=== PATIENT | female | born 1950 | race Caucasian/White ===

== ENCOUNTER 2021-08-16 09:05 | Outpatient (CLI) | payer MEDICARE, MEDICAID | END 2021-08-16 09:06 | disposition home or self-care (01) | LOC: CSHLAB 09:05 | PROVIDERS: ATTEND Orthopaedic Surgery | DX: Z01.812 Encounter for preprocedural laboratory examination (principal); Z20.822 Contact with and (suspected) exposure to COVID-19; M16.12 Unilateral primary osteoarthritis, left hip | CPT/HCPCS: 87081; U0003; U0005 ==

== ENCOUNTER 2021-08-19 10:25 | Inpatient (IN) | payer MEDICARE, MEDICAID ==
[2021-08-16 11:27] VITALS: BMI 29.4
[~2021-08-19 10:25] MED LIST: Bupivacaine 0.25% HCL 30 ML VIAL ONE; EPINEPHrine 1 MG/ML AMP ONE; Neomycin-Polymyxin 1 ML AMP ONE
[2021-08-19] MEDS ORDERED: Lidocaine 1% MPF 2 ML VIAL ONE (10:38)
[2021-08-19] MEDS ORDERED: Dexamethasone 4 mg/ml Vial ONE (10:38)
[2021-08-19] MEDS ORDERED: Fentanyl 100 MCG/2 ML VIAL ONE (10:39)
[2021-08-19] MEDS ORDERED: Bupivacaine PF 0.5% 30 ML VIAL ONE (10:39)
[2021-08-19] MEDS ORDERED: Midazolam HCl 2 mg/2 ml Vial ONE ×2 (11:21→12:36)
[2021-08-19] MEDS ORDERED: Ropivacaine 0.5% HCl/PF (150 MG/30 ML VIAL) ONE (11:25)
[2021-08-19] MEDS ORDERED: CEFAZOLIN 1 GM VIAL ONE ×2 (12:21)
[2021-08-19] MEDS ORDERED: Propofol 1,000 MG/100 ML VIAL IV ONE (12:36)
[2021-08-19] MEDS ORDERED: Phenylephrine 10 MG/ML VIAL ONE (13:04)
[2021-08-19] MEDS ORDERED: Tranexamic Acid 1,000 MG/10 ML VIAL ONE (15:35)
[2021-08-19] MEDS ORDERED: diphenhydrAMINE 25 MG CAP PO PRN (17:29)
[2021-08-19] MEDS ORDERED: Ondansetron PF 4 MG/2 ML Vial IVP PRN (17:30)
[2021-08-19] MEDS ORDERED: HYDROcodone/Acetaminophen 10/325 mg Tablet PO PRN (17:30)
[2021-08-19] MEDS ORDERED: Zolpidem Tartrate 5 MG TAB PO PRN (17:30)
[2021-08-19] MEDS ORDERED: Dextrose 5% in Water 1,000 ML IV PRN (17:30)
[2021-08-19] MEDS ORDERED: Morphine 2 MG/ML VIAL SLOW IVP PRN (17:30)
[2021-08-19] MEDS ORDERED: Promethazine HCl 25 MG/ML VIAL IM PRN (17:30)
[2021-08-19] MEDS ORDERED: Acetaminophen 325 MG TAB PO PRN (17:30)
[2021-08-19] MEDS ORDERED: Dextrose 50% Abboject 50 ML SYRINGE IVP PRN (17:30)
[2021-08-19] MEDS ORDERED: Morphine 4 MG/ML VIAL SLOW IVP PRN (17:31)
[2021-08-19] MEDS: HYDROcodone/Acetaminophen 10/325 mg Tablet PO PRN (17:42)
[2021-08-19] MEDS: Sodium Chloride 0.9% 1,000 ML IV SCH (17:43)
[2021-08-19] MEDS: CEFAZOLIN 2 GM in Sodium Chloride 0.9% 100 ML IVPB SCH (22:03)
[2021-08-19] MEDS: HumaLOG 300 UNITS/3 ML VIAL SC PRN (22:12)
[2021-08-20 01:02] LABS: #Monocytes 0.8 10x3/uL (0.0-1.1); #Neutrophils 7.3 10x3/uL (1.5-8.4); %Basophils 0.3 % (0.0-2.0); %Eosinophils 0.1 % (0.0-6.0); %Lymphocytes 8.3 % (18.0-47.0); %Monocytes 8.4 % (0.0-10.0); %Neutrophils 82.4 % (40.0-75.0); Mean Corpuscular HGB CONC 33.1 g/dL (32.0-36.0); Mean Corpuscular Hemoglobin 29.8 pg (27.0-33.0); Mean Corpuscular Volume 89.9 fl (81.6-98.3); Platelet Count 169 10x3/uL (150-450); RBC Distribution Width 14.2 % (11.5-14.5); Red Blood Cell (RBC) Count 3.36 10x6/uL (3.90-5.03); White Blood Cell (WBC) Count 8.9 10x3/uL (3.5-10.5)
[2021-08-20 01:15] LABS: Anion Gap 16 mmol/L (10-20); BUN (Urea Nitrogen) 29 mg/dL (9.8-20.1); Calc. Creatinine Clearance 47 mL/min (70-130); Calcium 8.5 mg/dL (7.8-10.44); Carbon Dioxide 23 mmol/L (23-31); Chloride 105 mmol/L (98-107); Glucose 226 mg/dL (80-115); Magnesium 1.5 mg/dL (1.6-2.6); Potassium 4.6 mmol/L (3.5-5.1); Sodium 139 mmol/L (136-145)
[2021-08-20] MEDS ORDERED: Sodium Chloride 0.9% 1,000 ML IV SCH (01:15)
[2021-08-20] MEDS: Sodium Chloride 0.9% 1,000 ML IV SCH ×3 (04:17→23:05)
[2021-08-20] MEDS: HumaLOG 300 UNITS/3 ML VIAL SC PRN ×2 (05:12→11:20)
[2021-08-20] MEDS: CEFAZOLIN 2 GM in Sodium Chloride 0.9% 100 ML IVPB SCH (06:27)
[2021-08-20] MEDS: Ferrous Gluconate 324 MG TAB PO SCH ×2 (08:22→16:44)
[2021-08-20] MEDS: Multivitamin W/ Minerals 1 TAB PO SCH (08:22)
[2021-08-20] MEDS: Venlafaxine HCl XR 75 MG CAP PO SCH (08:22)
[2021-08-20] MEDS: Senokot S 8.6-50 MG TAB PO SCH ×2 (08:22→23:08)
[2021-08-20] MEDS: Apixaban 5 MG TAB PO SCH ×2 (08:22→23:08)
[2021-08-20] MEDS: HYDROcodone/Acetaminophen 10/325 mg Tablet PO PRN ×3 (08:23→23:09)
[2021-08-20] MEDS ORDERED: Lisinopril 10 MG TAB PO SCH (09:00)
[2021-08-20] MEDS: metFORMIN 500 MG TAB PO SCH ×2 (09:22→16:44)
[2021-08-20] MEDS ORDERED: Magnesium 2 GM/50 ML(in water) 2 GM in Premix Bag 1 BAG IVPB SCH (16:45)
[2021-08-20] MEDS: Atorvastatin Calcium 20 MG TAB PO SCH (23:09)
[2021-08-21 04:47] LABS: Anion Gap 12 mmol/L (10-20); BUN (Urea Nitrogen) 26 mg/dL (9.8-20.1); Calc. Creatinine Clearance 63 mL/min (70-130); Calcium 8.4 mg/dL (7.8-10.44); Carbon Dioxide 25 mmol/L (23-31); Chloride 106 mmol/L (98-107); Glucose 109 mg/dL (80-115); Magnesium 2.1 mg/dL (1.6-2.6); Potassium 4.6 mmol/L (3.5-5.1); Sodium 138 mmol/L (136-145)
[2021-08-21] MEDS: HYDROcodone/Acetaminophen 10/325 mg Tablet PO PRN ×2 (07:33→20:02)
[2021-08-21] MEDS: Venlafaxine HCl XR 75 MG CAP PO SCH (08:08)
[2021-08-21] MEDS: Ferrous Gluconate 324 MG TAB PO SCH ×2 (08:08→16:30)
[2021-08-21] MEDS: Multivitamin W/ Minerals 1 TAB PO SCH (08:08)
[2021-08-21] MEDS: metFORMIN 500 MG TAB PO SCH ×2 (08:08→16:30)
[2021-08-21] MEDS: Apixaban 5 MG TAB PO SCH ×2 (08:08→20:02)
[2021-08-21] MEDS: Senokot S 8.6-50 MG TAB PO SCH ×2 (08:08→20:02)
[2021-08-21] MEDS: Sodium Chloride 0.9% 1,000 ML IV SCH ×2 (09:20→16:30)
[2021-08-21 11:30] LABS: Hemoglobin 8.8 g/dL (12.0-15.5); Platelet Count 137 10x3/uL (150-450)
[2021-08-21] MEDS: Atorvastatin Calcium 20 MG TAB PO SCH (20:02)
[2021-08-22] MEDS: Sodium Chloride 0.9% 1,000 ML IV SCH ×2 (04:27→16:25)
[2021-08-22 04:56] LABS: Anion Gap 16 mmol/L (10-20); BUN (Urea Nitrogen) 20 mg/dL (9.8-20.1); Calc. Creatinine Clearance 76 mL/min (70-130); Calcium 8.4 mg/dL (7.8-10.44); Carbon Dioxide 22 mmol/L (23-31); Chloride 106 mmol/L (98-107); Glucose 99 mg/dL (80-115); Potassium 4.5 mmol/L (3.5-5.1); Sodium 139 mmol/L (136-145)
[2021-08-22 05:12] LABS: #Basophils 0.1 10x3/uL (0.0-0.2); #Eosinphils 0.1 10x3/uL (0.0-0.5); #Monocytes 0.9 10x3/uL (0.0-1.1); #Neutrophils 3.9 10x3/uL (1.5-8.4); %Basophils 0.8 % (0.0-2.0); %Eosinophils 1.7 % (0.0-6.0); %Lymphocytes 20.3 % (18.0-47.0); %Monocytes 14.7 % (0.0-10.0); %Neutrophils 62.2 % (40.0-75.0); Mean Corpuscular HGB CONC 32.3 g/dL (32.0-36.0); Mean Corpuscular Hemoglobin 29.6 pg (27.0-33.0); Mean Corpuscular Volume 91.9 fl (81.6-98.3); Mean Platelet Volume 10.7 fl (7.4-10.4); Platelet Count 148 10x3/uL (150-450); RBC Distribution Width 14.6 % (11.5-14.5); White Blood Cell (WBC) Count 6.3 10x3/uL (3.5-10.5)
[2021-08-22] MEDS: Venlafaxine HCl XR 75 MG CAP PO SCH (08:16)
[2021-08-22] MEDS: metFORMIN 500 MG TAB PO SCH ×2 (08:16→16:25)
[2021-08-22] MEDS: Apixaban 5 MG TAB PO SCH ×2 (08:17→21:58)
[2021-08-22] MEDS: Multivitamin W/ Minerals 1 TAB PO SCH (08:17)
[2021-08-22] MEDS: Senokot S 8.6-50 MG TAB PO SCH ×2 (08:17→21:58)
[2021-08-22] MEDS: HYDROcodone/Acetaminophen 10/325 mg Tablet PO PRN ×2 (08:17→21:59)
[2021-08-22] MEDS: Ferrous Gluconate 324 MG TAB PO SCH ×2 (08:17→16:25)
[2021-08-22] MEDS: Atorvastatin Calcium 20 MG TAB PO SCH (21:58)
[2021-08-23] MEDS: Sodium Chloride 0.9% 1,000 ML IV SCH ×2 (03:31→08:05)
[2021-08-23 04:29] LABS: #Eosinphils 0.1 10x3/uL (0.0-0.5); #Monocytes 0.8 10x3/uL (0.0-1.1); #Neutrophils 3.9 10x3/uL (1.5-8.4); %Basophils 0.7 % (0.0-2.0); %Eosinophils 2.2 % (0.0-6.0); %Lymphocytes 19.1 % (18.0-47.0); %Monocytes 13.6 % (0.0-10.0); %Neutrophils 64.1 % (40.0-75.0); Hemoglobin 7.6 g/dL (12.0-15.5); Mean Corpuscular HGB CONC 33.6 g/dL (32.0-36.0); Mean Corpuscular Hemoglobin 30.8 pg (27.0-33.0); Mean Corpuscular Volume 91.5 fl (81.6-98.3); Mean Platelet Volume 10.5 fl (7.4-10.4); Platelet Count 155 10x3/uL (150-450); RBC Distribution Width 14.4 % (11.5-14.5); Red Blood Cell (RBC) Count 2.47 10x6/uL (3.90-5.03)
[2021-08-23] MEDS: Apixaban 5 MG TAB PO SCH ×2 (08:04→19:25)
[2021-08-23] MEDS: Ferrous Gluconate 324 MG TAB PO SCH ×2 (08:04→18:09)
[2021-08-23] MEDS: HYDROcodone/Acetaminophen 10/325 mg Tablet PO PRN (08:05)
[2021-08-23] MEDS: metFORMIN 500 MG TAB PO SCH ×2 (08:05→18:09)
[2021-08-23] MEDS: Venlafaxine HCl XR 75 MG CAP PO SCH (08:05)
[2021-08-23] MEDS: Senokot S 8.6-50 MG TAB PO SCH ×2 (08:05→21:54)
[2021-08-23] MEDS: Multivitamin W/ Minerals 1 TAB PO SCH (08:05)
[2021-08-23] MEDS ORDERED: Digoxin 0.5 MG/2 ML AMP SLOW IVP SCH (09:45)
[2021-08-23] MEDS: Atorvastatin Calcium 20 MG TAB PO SCH (21:53)
[2021-08-24 04:21] LABS: #Eosinphils 0.2 10x3/uL (0.0-0.5); #Monocytes 0.7 10x3/uL (0.0-1.1); %Basophils 0.5 % (0.0-2.0); %Eosinophils 2.8 % (0.0-6.0); %Monocytes 12.2 % (0.0-10.0); %Neutrophils 66.2 % (40.0-75.0); Hemoglobin 9.4 g/dL (12.0-15.5); Mean Corpuscular HGB CONC 33.3 g/dL (32.0-36.0); Mean Corpuscular Hemoglobin 30.2 pg (27.0-33.0); Mean Corpuscular Volume 90.7 fl (81.6-98.3); Platelet Count 174 10x3/uL (150-450); RBC Distribution Width 14.2 % (11.5-14.5); Red Blood Cell (RBC) Count 3.11 10x6/uL (3.90-5.03)
[2021-08-24 04:37] LABS: Anion Gap 14 mmol/L (10-20); BUN (Urea Nitrogen) 14 mg/dL (9.8-20.1); Calc. Creatinine Clearance 79 mL/min (70-130); Calcium 8.4 mg/dL (7.8-10.44); Carbon Dioxide 25 mmol/L (23-31); Chloride 106 mmol/L (98-107); Glucose 90 mg/dL (80-115); Potassium 4.7 mmol/L (3.5-5.1); Sodium 140 mmol/L (136-145)
[2021-08-24] MEDS: Venlafaxine HCl XR 75 MG CAP PO SCH (08:14)
[2021-08-24] MEDS: Multivitamin W/ Minerals 1 TAB PO SCH (08:14)
[2021-08-24] MEDS: metFORMIN 500 MG TAB PO SCH ×2 (08:14→17:08)
[2021-08-24] MEDS: Apixaban 5 MG TAB PO SCH ×2 (08:14→21:44)
[2021-08-24] MEDS: Senokot S 8.6-50 MG TAB PO SCH ×2 (08:14→21:45)
[2021-08-24] MEDS: Ferrous Gluconate 324 MG TAB PO SCH ×2 (08:14→17:08)
[2021-08-24] MEDS: HYDROcodone/Acetaminophen 10/325 mg Tablet PO PRN (08:15)
[2021-08-24] MEDS ORDERED: Digoxin 0.05 MG/ML Oral Solution PO SCH (09:00)
[2021-08-24] MEDS ORDERED: Digoxin 0.125 MG TAB PO SCH (10:00)
[2021-08-24] MEDS: Digoxin 0.25 MG TAB PO SCH (10:54)
[2021-08-24] MEDS: Atorvastatin Calcium 20 MG TAB PO SCH (21:43)
[2021-08-25] MEDS: Senokot S 8.6-50 MG TAB PO SCH ×2 (09:03→21:13)
[2021-08-25] MEDS: Venlafaxine HCl XR 75 MG CAP PO SCH (09:03)
[2021-08-25] MEDS: Apixaban 5 MG TAB PO SCH ×2 (09:03→21:13)
[2021-08-25] MEDS: Ferrous Gluconate 324 MG TAB PO SCH ×2 (09:03→17:53)
[2021-08-25] MEDS: Digoxin 0.25 MG TAB PO SCH (09:03)
[2021-08-25] MEDS: Multivitamin W/ Minerals 1 TAB PO SCH (09:03)
[2021-08-25] MEDS: metFORMIN 500 MG TAB PO SCH ×2 (09:03→17:53)
[2021-08-25] MEDS: Atorvastatin Calcium 20 MG TAB PO SCH (21:14)
[2021-08-26] MEDS: Ferrous Gluconate 324 MG TAB PO SCH ×2 (09:01→17:51)
[2021-08-26] MEDS: Senokot S 8.6-50 MG TAB PO SCH ×2 (09:02→21:56)
[2021-08-26] MEDS: Digoxin 0.25 MG TAB PO SCH (09:02)
[2021-08-26] MEDS: Apixaban 5 MG TAB PO SCH ×2 (09:02→21:56)
[2021-08-26] MEDS: Multivitamin W/ Minerals 1 TAB PO SCH (09:02)
[2021-08-26] MEDS: metFORMIN 500 MG TAB PO SCH ×2 (09:02→17:54)
[2021-08-26] MEDS: Venlafaxine HCl XR 75 MG CAP PO SCH (09:02)
[2021-08-26] MEDS: Atorvastatin Calcium 20 MG TAB PO SCH (21:56)
[2021-08-27] MEDS: Venlafaxine HCl XR 75 MG CAP PO SCH (09:18)
[2021-08-27] MEDS: Multivitamin W/ Minerals 1 TAB PO SCH (09:18)
[2021-08-27] MEDS: Senokot S 8.6-50 MG TAB PO SCH (09:18)
[2021-08-27] MEDS: metFORMIN 500 MG TAB PO SCH (09:19)
[2021-08-27] MEDS: Apixaban 5 MG TAB PO SCH (09:19)
[2021-08-27] MEDS: Ferrous Gluconate 324 MG TAB PO SCH (09:20)
[2021-08-27] MEDS: Digoxin 0.25 MG TAB PO SCH (09:44)
[2021-08-27 12:02] VITALS: BP 182/94; TEMP 98.6
== END 2021-08-27 11:15 | disposition home or self-care (01) | DRG 470 ==
LOC: CSHSDC 10:25 → CSHTELE 16:36
PROVIDERS: ADMIT Orthopaedic Surgery; ATTEND Internal Medicine
PROC: 0SRB0JZ Replacement of Left Hip Joint with Synthetic Substitute, Open Approach (ICD-10-PCS; principal; 2021-08-19)
PROC: 30233N1 Transfusion of Nonautologous Red Blood Cells into Peripheral Vein, Percutaneous Approach (ICD-10-PCS; 2021-08-23)
DX: M16.12 Unilateral primary osteoarthritis, left hip (principal); I48.92 Unspecified atrial flutter; D62 Acute posthemorrhagic anemia; I10 Essential (primary) hypertension; E78.5 Hyperlipidemia, unspecified; I49.5 Sick sinus syndrome; I08.1 Rheumatic disorders of both mitral and tricuspid valves; F10.20 Alcohol dependence, uncomplicated; E74.39 Other disorders of intestinal carbohydrate absorption; I48.0 Paroxysmal atrial fibrillation; F41.9 Anxiety disorder, unspecified; F41.8 Other specified anxiety disorders; D63.8 Anemia in other chronic diseases classified elsewhere; I95.2 Hypotension due to drugs; T46.5X5A Adverse effect of other antihypertensive drugs, initial encounter; Z98.890 Other specified postprocedural states; Z95.0 Presence of cardiac pacemaker; Z79.01 Long term (current) use of anticoagulants; Z01.812 Encounter for preprocedural laboratory examination; Z20.822 Contact with and (suspected) exposure to COVID-19
CPT/HCPCS: 36415; 36416; 36430; 80048; 83735; 85014; 85018; 85025; 85049; 86850; 86900; 86901; 87081; 93005; 93010; C1713; C1776; J0171; J0690; J1100; J1160; J1815; J2250; J2370; J2704; J2795; J3010; J3370; J3475; J3490; J7050; P9016; S0020; U0003; U0005